=== PATIENT | female | born 1995 | race Caucasian/White ===

== ENCOUNTER 2022-04-04 13:24 | Emergency (ER) | payer BC, SELFPAY ==
[2022-04-04 13:31] VITALS: BP 120/73; PULSE 84; RESP 18; TEMP 36.4; O2SAT 100; BMI 40.3
--- NOTE | 2022-04-04 14:10 | CRLHL7_ITS ---
For Patients: As a result of the Century Cures Act, medical imaging exams and procedure reports are released immediately into your electronic medical record. You may view this report before your referring provider. If you have questions, please contact your health care provider. HISTORY: Bleeding in early . TECHNIQUE: Ultrasound of the pelvis using transvaginal technique. COMPARISON: None. FINDINGS: Single intrauterine gestation. pole is present. No cardiac activity detected. Higden-rump length of 4 mm corresponds to estimated gestational age 6 weeks 0 days. Gestational sac is positioned relatively low within the uterus. Right ovary measures 2.9 x 1.1 x 2 cm. Normal appearance of the right ovary. Left ovary measures 2.9 x 2 x 2.7 cm. 2.2 cm corpus luteum cyst in the left ovary. No free fluid in the pelvis. IMPRESSION: Findings suspicious but not diagnostic of failure. Correlate with quantitative beta HCG and follow-up ultrasound. Dictated by Jose Daniel Kurtz MD @ 04/04/2022 3:47:40 PM (Electronically Signed)
[2022-04-04 14:25] LABS: Basophils Percent Auto 0.4 % (0.0-3.0); Eosinophils Percent Auto 2.1 % (0.0-7.0); Hematocrit 41.1 % (33.0-51.0); Hemoglobin* 13.4 gm/dL (12.0-16.0); Immature Granulocytes Pct Auto 0.7 %; Lymphocytes Percent Auto 25.3 % (20-44); Mean Corpuscular HGB Conc 33 gm/dL (32-36); Mean Corpuscular Hemoglobin 27 pg (26-34); Mean Corpuscular Volume 83 fL (80-100); Monocytes Percent Auto 6.9 % (0.0-11.0); Neutrophils Percent Auto 64.6 % (42.0-72.0); Platelet Count* 299 K/uL (140-440); Red Blood Count 4.95 m/uL (4.00-5.20); White Blood Count* 11.68 K/uL (4.50-11.00)
[2022-04-04 14:28] LABS: Slide Review Reflex No
--- NOTE | 2022-04-04 16:05 | ED_ITS ---
HPI - General Adult General Date Seen: 04/04/22 Chief complaint: Vaginal Bleeding Stated complaint: 8-10 weeks, Bleeding Time Seen by Provider: 04/04/22 13:30 Source: patient Mode of arrival: ambulatory Limitations: no limitations History of Present Illness HPI narrative: Patient is a 26-year-old woman who presents for evaluation of bleeding during . She reports that her last period was sometime in January, early to mid January. She estimates that she is 8-10 weeks . This is a surprise and therefore she is not certain of date, but is a desired p regnancy. She says today she had onset of a sensation of vaginal fluid, went to the bathroom and noted some bleeding, a small clot and bleeding in the toilet. She came right in so she has not noted any bleeding since then. No significant abdominal pain. This is her 2nd , she has a 3-year-old did not have any complications with that . She denies any trauma, fevers, urinary symptoms or other complaints. She is not sure of her blood type. Is scheduled to come in next week for an ultrasound. Has not yet had any care. Related Data Home Medications Medication Instructions Recorded Confirmed No Known Home Medications 04/04/22 04/04/22 Allergies Allergy/AdvReac Type Severity Reaction Status Date / Time No Known Drug Allergies Allergy Verified 04/04/22 13:35 Review of Systems Status of ROS: Reports: 6 or more systems reviewed and unremarkable except as noted in History and below [facility] Medical History History of gestational hypertension History of pre-eclampsia Labial adhesions Vacuum-assisted vaginal delivery Surgical History (Updated 04/03/22 @ 12:52 by Luzmaria Cruz PA-C) History of myringotomy Family History (Updated 04/03/22 @ 12:53 by Luzmaria Cruz PA-C) Mother Celiac disease Depression Father Alcohol dependence Depression Paternal Grandmother Breast cancer Maternal Grandmother Diabetes Aunt Diabetes Social History Smoking Status: Never smoker How often do you have a drink containing alcohol: never AUDIT-C Alcohol total score: 0 Non-prescribed substance use: denies use Exam Narrative: Exam Narrative: Vital signs as noted above. In general, an alert, well-appearing patient. Head: Normocephalic, atraumatic. Eyes: Pupils are equal reactive. Extraocular movements are full. Conjunctivae are normal. ENT: Mucous membranes are moist. Throat is normal. Neck: Supple without lymphadenopathy. Heart: Regular rate and rhythm. No murmur or rub. Lungs: Clear bilaterally. No increased work of breathing, crackles or wheezes. Abdomen: Soft and nontender. No organomegaly. Extremities: Well perfused. No edema. No calf tenderness. Pulses intact. Neurologic: Patient is alert and oriented to person and place. Speech is fluent. Face is symmetric. Moves all extremities equally. Affect: Normal. Skin: Warm and dry. Well perfused. Const: Vital Signs, click to edit/add: Vital Signs - 24 hr 04/04/22 13:31 Temperature 97.5 F L Pulse Rate [Left P ulse Oximeter] 84 Respiratory Rate 18 Blood Pressure [Ri ght Upper Arm] 120/73 Pulse Oximetry 100 Oxygen Delivery Me thod Room Air Documenting provider has reviewed patient's vital signs: yes Course Course Hospital Course: Given her initial estimation of 8 to 10 weeks gestational age, I initially did a bedside ultrasound to see if I could confirm an intrauterine . She did have fluid in the endometrial cavity, but I was not able to see a clear intrauterine using a transabdominal approach. Therefore, I recommended that we do a transvaginal formal ultrasound. In the meantime, I ordered a CBC which showed a normal hemoglobin of 13.4. She did have a mildly elevated white blood cell count of 11.7, nonspecific in this setting. Her blood type was O positive. She went on to have a formal ultrasound which was read as showing findings suspicious but not diagnostic of failure. She had a single intrauterine gestation at 6 weeks without cardiac activity. There was a corpus luteum cyst in left ovary, no other ovarian findings. No free fluid in the pelvis. Her quantitative hCG is 5000, relatively low at 6 weeks. I have discussed all this with her. I have told her that my suspicion is that this is not a normal bili developing and that likely this will result in a miscarriage. She does say that she is having more bleeding as she has been sitting in the ER. Discussed what to expect over the next few days. If she has severe bleeding, severe pain or other concerns, return to the ER. Otherwise I would like her to follow up in clinic in a couple of days for recheck and consideration of a repeat hCG if any concerns about progression. Vital Signs Vital signs: Initial Vital Signs Temperature 97.5 F L 04/04/22 13:31 Temperature Source Temporal Artery Scan 04/04/22 13:31 Pulse Rate 84 04/04/22 13:31 Respiratory Rate 18 04/04/22 13:31 Blood Pressure 120/73 04/04/22 13:31 Blood Pressure Mean 88 04/04/22 13:31 Blood Pressure Position Sitting 04/04/22 13:31 Pulse Oximetry 100 04/04/22 13:31 Oxygen Delivery Method 04/04/22 13:31 Vital Signs Temperature 97.5 F L 04/04/22 13:31 Pulse Rate 84 04/04/22 13:31 Respiratory Rate 18 04/04/22 13:31 Blood Pressure 120/73 04/04/22 13:31 Pulse Oximetry 100 04/04/22 13:31 Oxygen Delivery Method 04/04/22 13:31 Temperature 97.5 F L 04/04/22 13:31 Pulse Rate 84 04/04/22 13:31 Respiratory Rate 18 04/04/22 13:31 Blood Pressure 120/73 04/04/22 13:31 Pulse Oximetry 100 04/04/22 13:31 Oxygen Delivery Method 04/04/22 13:31 Medical Decision Making Lab Data Labs: Lab Results 04/04/22 04/04/22 04/04/22 Range/Units 14:18 14:18 14:18 WBC 11.68 H (4.50-11.00) K/uL RBC 4.95 (4.00-5.20) m/uL Hgb 13.4 (12.0-16.0) gm/dL Hct 41.1 (33.0-51.0) % MCV 83 (80-100) fL MCH 27 (26-34) pg MCHC 33 (32-36) gm/dL RDW Coeff of Sandi 13.0 (11.5-15.5) % Plt Count 299 (140-440) K/uL Neut % (Auto) 64.6 (42.0-72.0) % Lymph % (Auto) 25.3 (20-44) % [place] % (Auto) 6.9 (0.0-11.0) % Eos % (Auto) 2.1 (0.0-7.0) % Baso % (Auto) 0.4 (0.0-3.0) % Neut # (Auto) 7.50 H (1.7-7.0) K/uL Lymph # (Auto) 3.00 H (0.90-2.90) K/uL [place] # (Auto) 0.80 (0.00-0.90) K/UL Eos # (Auto) 0.20 (0.00-0.50) K/uL Baso # (Auto) 0.00 (0.00-0.30) K/uL HCG, Quant 5207.10 mIU/mL Blood Type O Positive Discharge Plan Discharge Clinical Impression: Threatened Patient Disposition: Home, Self-Care Condition: Stable Instructions: Threatened Miscarriage (ED) Additional Instructions: Tylenol as needed for cramping. You will likely continue to have some bleeding over the next few days, like a heavy period. If you have severe pain or significant bleeding, more than a pad an hour for several hours, return for re- evaluation. You should be seen in Ob clinic on Wednesday for recheck. You will need to call them on Wednesday to arrange. Prescriptions: No Action No Known Home Medications Follow Up/Referrals: Provider,Not a Local [Primary Care Provider] - Stand Alone Forms: [employer] Info Instructions
== END 2022-04-04 16:10 | disposition home or self-care (01) ==
PROVIDERS: Emergency Provider Emergency Medicine
DX: O20.0 Threatened abortion (principal); Z3A.08 8 weeks gestation of pregnancy
CPT/HCPCS: 36415; 76815; 76817; 84702; 85025; 86900; 86901; 99283; 99284

== ENCOUNTER 2022-04-06 14:00 | Outpatient (CLI) | payer BC, SELFPAY ==
[2022-04-06 16:46] LABS: HCG Qualitative Serum* Positive (Negative)
== END 2022-04-06 14:01 | disposition home or self-care (01) ==
LOC: NFLDREF 14:00
PROVIDERS: Visit Provider Obstetrics & Gynecology
DX: O03.9 Complete or unspecified spontaneous abortion without complication (principal)
CPT/HCPCS: 84702; 84703

== ENCOUNTER 2022-12-07 09:32 | Outpatient (CLI) | payer BC, SELFPAY | END 2022-12-07 09:33 | disposition home or self-care (01) | LOC: NFLDREF 12-08 19:56 | PROVIDERS: Visit Provider Physician Assistant Medical | DX: R30.0 Dysuria (principal); N39.0 Urinary tract infection, site not specified; N30.00 Acute cystitis without hematuria | CPT/HCPCS: 87086 ==

== ENCOUNTER 2022-12-21 11:06 | Outpatient (CLI) | payer BC, SELFPAY ==
[2022-12-21 15:42] LABS: Chlamydia DNA Amplified* NOT DETECTED (No Detected); GC DNA Amplified* NOT DETECTED (No Detected)
== END 2022-12-21 11:07 | disposition home or self-care (01) ==
LOC: FRMREF 11:06
PROVIDERS: Visit Provider Family Medicine
DX: R10.2 Pelvic and perineal pain (principal)
CPT/HCPCS: 87086; 87491; 87591

== ENCOUNTER 2022-12-25 14:44 | Emergency (ER) | payer BC, SELFPAY ==
[2022-12-25 14:51] VITALS: BP 138/89; PULSE 64; RESP 16; TEMP 36.6; O2SAT 98; BMI 34.5
--- NOTE | 2022-12-25 15:01 | ED.GENADULT ---
HPI - General Adult General Chief complaint: Abdominal Pain Stated complaint: Burning sharp pain Lower L Abdomen Time Seen by Provider: 12/25/22 14:51 History of Present Illness HPI narrative: pt states she was seen at [facility] Wednesday and for chest pain and abdominal pain, labs, urine, covid/rsv/flu and xray were negative. Pt told she has gas. also has yeast infection , just took last dose of diflucan. LLQ Abdominal pain is still constant and 9/ 10, also c/o nausea. denies fevers. Also c/ o back pain bilat 27-year-old woman presenting to emergency department with complaint of abdominal pain though also seems to include some component of chest pain. No known cardiovascular disease. Had extensive evaluation including x-ray imaging and lab work. Apparently was told has gas and yeast infection and was given Diflucan. She still is having persistent pain in the left side abdomen. Associated nausea. No fever. No rash. Having bilateral back pain as well. Review available records. Related Data Home Medications Medication Instructions Recorded Confirmed norelgestromin 150 mcg-e.estradiol 1 patch topical 12/07/22 12/07/22 35 mcg/24 hr weekly transderm patch (Zafemy) Previous Rx's Medication Instructions Recorded hydroxyzine HCl 50 mg tablet 25 - 100 mg (0.5 - 2 x 50 mg) PO 08/06/22 QHS PRN insomnia #60 tabs topiramate 50 mg tablet (Topamax) 75 mg (1.5 x 50 mg) PO BID #270 10/13/22 tabs indomethacin 50 mg capsule 50 mg PO TID #15 caps 12/25/22 Allergies Allergy/AdvReac Type Severity Reaction Status Date / Time No Known Drug Allergies Allergy Verified 12/31/22 10:57 Review of Systems Status of ROS: Reports: 6 or more systems reviewed and unremarkable except as noted in History and below [facility] Medical History Dyspareunia Urinary tract infection ?N39.0 - Urinary tract infection, site not specified (ICD-10) History of self injurious behavior Passive suicidal ideations ?R45.851 - Suicidal ideations (ICD-10) Bipolar disorder ?F31.9 - Bipolar disorder, unspecified (ICD-10) Insomnia ?G47.00 - Insomnia, unspecified (ICD-10) Medication management ?Z79.899 - Other senior care (current) drug therapy (ICD-10) History of delivery ?Z87.51 - Personal history of pre-term labor (ICD-10) History of severe pre-eclampsia ?Z87.59 - Personal history of other complications of , childbirth and the [place] (ICD-10) Missed ab (11/21/17) ?O02.1 - Missed (ICD-10) Vacuum-assisted vaginal delivery ?Z37.9 - Outcome of delivery, unspecified (ICD-10) Labial adhesions ?N90.89 - Other specified noninflammatory disorders of vulva and perineum (ICD-10) Surgical History History of cholecystectomy (~02/2020) ?Z90.49 - Acquired absence of other specified parts of digestive tract (ICD-10) History of myringotomy ?Z98.890 - Other specified postprocedural states (ICD-10) Family History Mother Celiac disease Depression Father Alcohol dependence Depression Paternal Grandmother Breast cancer Maternal Grandmother Diabetes Aunt Diabetes Other Thyroid disease Social History Smoking Status: Never smoker Do you use any of these nicotine containing products: Vaping Products Second hand tobacco smoke exposure: No How often do you have a drink containing alcohol: monthly or less How often do you have six or more drinks on one occasion: Never AUDIT-C Alcohol total score: 1 Non-prescribed substance use: denies use Little interest or pleasure in doing things: more than half the days Feeling down, depressed, or hopeless: more than half the days service: No Exam Narrative: Exam Narrative: Pleasant. Clearly uncomfortable. Skin is warm and dry. No rash or inflammatory changes otherwise. Lungs are clear with equal expansion excursion. Has some tension and discomfort to palpation of the low back perispinal musculature. Lungs are clear. Heart in regular rate and rhythm. Abdomen is soft and nontender though the area of pain seems to correspond with clearly reproducible left rib margin pain anteriorly. This is the pain that she has been experiencing. Normal bowel sounds are present. Extremities are well perfused without edema. Good strength Const: Vital Signs, click to edit/add: Vital Signs - 24 hr 12/25/22 14:51 Temperature 97.8 F Pulse Rate [Pulse Oximeter] 64 Respiratory Rate 16 Blood Pressure [Ri ght Upper Arm] 138/89 Pulse Oximetry 98 Oxygen Delivery Me thod Room Air Documenting provider has reviewed patient's vital signs: yes Course Vital Signs Vital signs: Initial Vital Signs Temperature 97.8 F 12/25/22 14:51 Temperature Source Temporal Artery Scan 12/25/22 14:51 Pulse Rate 64 12/25/22 14:51 Pulse Rhythm Regular 12/25/22 14:51 Respiratory Rate 16 12/25/22 14:51 Blood Pressure 138/89 12/25/22 14:51 Blood Pressure Mean 105 12/25/22 14:51 Blood Pressure Position Sitting 12/25/22 14:51 Pulse Oximetry 98 12/25/22 14:51 Oxygen Delivery Method Room Air 12/25/22 14:51 Vital Signs Temperature 97.8 F 12/25/22 14:51 Pulse Rate 64 12/25/22 14:51 Respiratory Rate 16 12/25/22 14:51 Blood Pressure 138/89 12/25/22 14:51 Pulse Oximetry 98 12/25/22 14:51 Oxygen Delivery Method Room Air 12/25/22 14:51 Temperature 97.8 F 12/25/22 14:51 Pulse Rate 64 12/25/22 14:51 Respiratory Rate 16 12/25/22 14:51 Blood Pressure 138/89 12/25/22 14:51 Pulse Oximetry 98 12/25/22 14:51 Oxygen Delivery Method Room Air 12/25/22 14:51 Medical Decision Making MDM Narrative Medical decision making narrative: Reviewing history has had some evidence of what appears to be enteritis. Clearly though with rib/rib margin pain of unclear etiology. I think also has resulting muscle tension or discomfort/spasm. Recent broad workup. With reproducibility of reported discomfort and lack of new symptoms and unremarkable workup to date, I do not think further evaluation is necessary at this time Will place lidocaine patch. See patient discharge Discharge Plan Discharge Clinical Impression: Enteritis, Costochondritis, Pain in rib Patient Disposition: Home, Self-Care Condition: Stable Instructions: Acute Diarrhea (ED) Additional Instructions: If this lidocaine patch works, they are also available [id number]. Can take either ibuprofen up to 800 mg per dose also probably 3 times a day or this indomethacin as prescribed. Either one I would try to take with just a little bit of food since I would like you to take it regularly for the next 5 days. Or if feeling awesome on day 4, I suppose you could skip day 5. Could use ice packs or warm packs, whatever makes it feel better. I would give the lower abdominal discomfort/pressure a few more days to clear as you get over what seems to be a bit of a bug? Activity Level: No Restrictions Discharge Diet: Regular Prescriptions: New indomethacin 50 mg capsule 50 mg PO TID Qty: 15 0RF Rx Instructions: administer with food or milk No Action Zafemy 150-35 mcg/24 hr patch weekly 1 patch topical hydroxyzine HCl 50 mg tablet 25 - 100 mg PO QHS PRN (Reason: insomnia) Qty: 60 2RF topiramate [Topamax] 50 mg tablet 75 mg PO BID Qty: 270 0RF Follow Up/Referrals: Provider,Not a Local [Primary Care Provider] - Stand Alone Forms: [employer] Info Instructions
[2022-12-25] MEDS: LIDOCAINE 5% PATCH 1 PATCH TRANSDERMA (15:30)
[2022-12-25] MEDS: INDOMETHACIN 25 MG CAPSULE 50 MG PO (15:40)
== END 2022-12-25 15:54 | disposition home or self-care (01) ==
LOC: ED 15:36
PROVIDERS: Emergency Provider Family Medicine
DX: K52.9 Noninfective gastroenteritis and colitis, unspecified (principal); M94.0 Chondrocostal junction syndrome [Tietze]
CPT/HCPCS: 99283; 99284; A9270

== ENCOUNTER 2022-12-31 11:31 | Outpatient (CLI) | payer BC, SELFPAY | END 2022-12-31 11:32 | disposition home or self-care (01) | LOC: FRMREF 11:32 | PROVIDERS: Visit Provider Registered Nurse | DX: R30.0 Dysuria (principal) | CPT/HCPCS: 87086 ==

== ENCOUNTER 2023-01-11 16:58 | Outpatient (CLI) | payer BC, SELFPAY ==
--- NOTE | 2023-01-11 17:00 | CRLHL7_ITS ---
For Patients: As a result of the Century Cures Act, medical imaging exams and procedure reports are released immediately into your electronic medical record. You may view this report before your referring provider. If you have questions, please contact your health care provider. CLINICAL HISTORY: pelvic and perineal pain, dyspareunia TECHNIQUE: 2D friedman scale ultrasound. In addition color Doppler and spectral Doppler analysis was performed of the pelvis using a transabdominal and transvaginal approach. FINDINGS: The myometrium has a normal uniform echotexture. The uterus measures 7.5 x 3.5 x 4.9 cm. The endometrial lining appears normal and measures 11 mm in thickness. The right ovary measures 3.0 x 2.7 x 2.5 cm in size and the left ovary measures 3.0 x 1.5 x 2.6 cm. The ovaries demonstrate normal arterial and venous blood flow on color Doppler and spectral Doppler analysis. There are no suspicious fluid collections within the cul-de-sac. A simple cyst is present within the right ovary measuring 2.2 x 1.8 x 2.1 cm. IMPRESSION: No uterine fibroid. No adnexal mass or excess pelvic free fluid. Incidental 2.2 cm simple right ovarian cyst. No ovarian torsion. Dictated by Pato Berry MD @ 01/12/2023 11:05:07 AM (Electronically Signed)
== END 2023-01-11 16:59 | disposition home or self-care (01) ==
LOC: US 16:59
PROVIDERS: PCP Nurse Practitioner Family; Visit Provider Registered Nurse
DX: R10.2 Pelvic and perineal pain (principal); N83.201 Unspecified ovarian cyst, right side
CPT/HCPCS: 76830; 76856; 93976